=== PATIENT | female | born 1950 | race Caucasian/White ===

== ENCOUNTER 2021-11-30 07:15 | Day surgery (SDC) | payer MEDICARE, SELFPAY ==
[2021-11-24 14:54] VITALS: BMI 34.5
--- NOTE | 2021-11-26 13:12 | MHC.SHP ---
Pre-Procedural Eval Section A Date of Service: 11/26/21 The patient is an INPATIENT: No Changes since office visit: No Cold of Flu in the past 2 weeks, No New Medical Problems, No Changes in Medication and No Patient answered all questions The History & Physical has been completed within 30 days and I have reviewed it.: Yes Section B Chief Complaint: cataract Allergies: Allergies Allergy/AdvReac Type Severity Reaction Status Date / Time pineapple Allergy Mild Itching Verified 11/24/21 14:54 From PROZAC Allergy Intermediate RASH Uncoded 11/24/21 14:50 From ZOLOFT Allergy Intermediate HEADACHES Uncoded 11/24/21 14:50 Plan Diagnosis/Plan: Unchanged I have reviewed the history and physical and performed a pertinent physical examination on my patient. No changes have occurred unless specified.
--- NOTE | 2021-11-27 09:12 | HO.ANESPROP2 ---
Documented by User: Sandra Connolly NP 11/27/21 09:12 HPI - Anesthesia Eval Consult details Narrative: 71yo F for Right Cataract Extraction IOL Insertion PCP cleared No previous cataract on record PMFSH Past Medical History Medical History Anxiety disorder Cataract Elevated cholesterol Hypertension Mild heartburn Wears dentures Surgical History Surgical History Hx of colonoscopy Hx of eye surgery Social History Social History Are you a primary before and after school daycare worker to a significant other at home: No Do you presently have visiting nurse or other home services: No Patient Tobacco Use Status: Former Tobacco user Quit Date: 2006 Tobacco use type: Cigarette Use of substances other than those prescribed or required for medical reasons: No Have you been hit, kicked, punched, or otherwise hurt by someone within the past year? If so, by whom?: No Are you DNR?: No Advance Directives: No Advance Directives Information Provided: Yes Advance Directives on File: No Recently lost weight without trying: No Meds Allergies Allergy/AdvReac Type Severity Reaction Status Date / Time pineapple Allergy Mild Itching Verified 11/24/21 14:54 From PROZAC Allergy Intermediate RASH Uncoded 11/24/21 14:50 From ZOLOFT Allergy Intermediate HEADACHES Uncoded 11/24/21 14:50 Home Medications Medication Instructions Recorded Confirmed Last Taken Type lovastatin 40 mg tablet 1 tab PO BEDTIME 09/16/21 09/16/21 Unknown History cholecalciferol (vitamin D3) 25 25 mcg PO DAILY 11/24/21 11/24/21 Unknown History mcg (1,000 unit) capsule (Vitamin D3) flaxseed oil 1,000 mg capsule 1,200 mg PO DAILY 11/24/21 11/24/21 Unknown History losartan 50 mg tablet 1 tab PO DAILY 11/24/21 11/24/21 Unknown History multivitamin 1 tab PO DAILY 11/24/21 11/24/21 Unknown History vitamin A-vitamin C-vit E-min 1 tab PO DAILY 11/24/21 11/24/21 Unknown History tablet Exam Exam Date and Time: November 27, 2021911 Height,Weight and Vital Signs: Height 5 ft 3 in Weight 88.451 kg Assessment and Plan Assessment Anesthesia Assessment: Chart Reviewed Documented by User: Kevin Marcano MD 11/30/21 09:13 PMF Past Medical History Medical History Anxiety disorder Cataract Elevated cholesterol Hypertension Mild heartburn Wears dentures Family History Family history of problems with anesthesia: No Surgical History Surgical History Hx of colonoscopy Hx of eye surgery History of Problems with Anesthesia: No Social History Social History Are you a primary before and after school daycare worker to a significant other at home: No Do you presently have visiting nurse or other home services: No Patient Tobacco Use Status: Former Tobacco user Quit Date: 2006 Tobacco use type: Cigarette Use of substances other than those prescribed or required for medical reasons: No Have you been hit, kicked, punched, or otherwise hurt by someone within the past year? If so, by whom?: No Are you DNR?: No Advance Directives: No Advance Directives Information Provided: Yes Advance Directives on File: No Recently lost weight without trying: No Meds Allergies Allergy/AdvReac Type Severity Reaction Status Date / Time pineapple Allergy Mild Itching Verified 11/24/21 14:54 From PROZAC Allergy Intermediate RASH Uncoded 11/24/21 14:50 From ZOLOFT Allergy Intermediate HEADACHES Uncoded 11/24/21 14:50 Home Medications Medication Instructions Recorded Confirmed Last Taken Type lovastatin 40 mg tablet 1 tab PO BEDTIME 09/16/21 09/16/21 Unknown History cholecalciferol (vitamin D3) 25 25 mcg PO DAILY 11/24/21 11/24/21 Unknown History mcg (1,000 unit) capsule (Vitamin D3) flaxseed oil 1,000 mg capsule 1,200 mg PO DAILY 11/24/21 11/24/21 Unknown History losartan 50 mg tablet 1 tab PO DAILY 11/24/21 11/24/21 Unknown History multivitamin 1 tab PO DAILY 11/24/21 11/24/21 Unknown History vitamin A-vitamin C-vit E-min 1 tab PO DAILY 11/24/21 11/24/21 Unknown History tablet Exam Airway Mallampati Class: II TM Dist: >3cm Neck ROM: Full Denture: Upper and Lower Loose/Missing/Broken Teeth: Yes Heart: [id number] Lungs: cta b/l Assessment and Plan Assessment Anesthesia Assessment: Anesthesia Plan Discussed Final Anesthetic Review Family History of Problems with Anesthesia: No History of Problems with Anesthesia: No NPO: Yes ASA Class: II Final Preanesthetic Review: No Changes in Pt Med Stat, Meds/Allgs Chart Reviewed, Consent Obtained/Reviewed and Anes Risks/Benef Reviewed Patient Risk: Intermediate Procedure Risk: Low Assessment/Block/Sedation in SS: Assess/Block/Sedation-SS Anesthetic Plan Anesthetic Plan: MAC: and Agree w/ Assess. and Plan Disposition: Standard PACU
[2021-11-30 07:55] VITALS: BP 160/131; PULSE 76; RESP 16; TEMP 36.3; O2SAT 96
[2021-11-30] MEDS: Tetracaine HCl/PF 0.5% Oph Sol 4 ML DROPS 1 DROP EYE-RIGHT (09:01)
[2021-11-30] MEDS: Cyclopentolate 1 % Ophth Sol 2 ML DRPBTL 1 DROP EYE-RIGHT ×3 (09:03→09:13)
[2021-11-30] MEDS: Tropicamide 1 % Ophth Sol 3 ML BTL 1 DROP EYE-RIGHT ×3 (09:04→09:17)
[2021-11-30] MEDS: Phenylephrine HCL 2.5% Oph SoL 2 ML BOTTLE 1 DROP EYE-RIGHT ×3 (09:06→09:20)
[2021-11-30] MEDS: Lactated Ringers 500 ML 50 ML IV (09:17)
--- NOTE | 2021-11-30 11:07 | HO.PNOPHT ---
Ophthalmology Procedure Procedure Date of Service: 11/30/21 Ophthalmology Viscoelastic: Nydia Draket Dual Pack Pro Ophthalmology Lenses: TECDORYS [id number] (25) Procedure Notes: PREOPERATIVE DIAGNOSIS: Decreased visual acuity right eye secondary to cataract POSTOPERATIVE DIAGNOSIS: Same PROCEDURE: Right cataract extraction with intraocular lens insertion SURGEON: Thomas Vargas M.D. ANESTHESIA: Topical/MAC ESTIMATED BLOOD LOSS: None COMPLICATIONS: None After obtaining informed consent, the patient was brought to the operating room suite and placed in the supine position. After adequate sedation per anesthesia, topical drops of Tetracaine were given to the right eye. The eye was then prepped and draped in the usual sterile fashion. The operating room microscope was then positioned over the operative eye and a lid speculum placed. A paracentesis was created. Viscoelastic was then instilled into the anterior chamber. A three plane incision was then created temporally, utilizing a 2.85 mm keratome. Capsulotomy forceps were then utilized to create a circular tear capsulotomy. Hydrodissection and hydrodelineation were carried out until adequate mobilization of the nucleus occurred. Phacoemulsification was then utilized to remove the dense central nucleus followed by removal of the cortical material utilizing the automated aspiration irrigation unit. Viscoelastic was instilled into the posterior capsular bag followed by placement of a posterior chamber intraocular lens without difficulty. The residual Viscoelastic was then removed utilizing the automated IA machine. The wound was checked and found to be watertight. The patient tolerated the procedure well and the lid speculum was removed. Intracameral injection of Vigamox 0.1 mL followed by a subtenon injection of Kenalog-40 0.2 mL were administered. The patient will be seen in the a.m.
[2021-11-30 11:35] VITALS: BP 127/62; PULSE 71; RESP 18; TEMP 36.9; O2SAT 99
== END 2021-11-30 11:57 | disposition home or self-care (01) ==
PROVIDERS: PCP Nurse Practitioner Family; Visit Provider Ophthalmology
PROC: (CPT 66985; principal; 2021-11-30 10:20)
DX: H25.11 Age-related nuclear cataract, right eye (principal); H52.4 Presbyopia; H40.213 Acute angle-closure glaucoma, bilateral; Z83.518 Family history of other specified eye disorder; I10 Essential (primary) hypertension; E78.2 Mixed hyperlipidemia; E78.00 Pure hypercholesterolemia, unspecified; R73.03 Prediabetes; Z79.899 Other long term (current) drug therapy; Z88.8 Allergy status to other drugs, medicaments and biological substances; Z87.891 Personal history of nicotine dependence
CPT/HCPCS: 66984; J2250; J3010; J3300; V2632

== ENCOUNTER 2021-12-14 08:20 | Day surgery (SDC) | payer MEDICARE, SELFPAY ==
[2021-11-24 15:00] VITALS: BMI 34.5
--- NOTE | 2021-12-10 10:39 | MHC.SHP ---
Pre-Procedural Eval Section A Date of Service: 12/10/21 The patient is an INPATIENT: No Changes since office visit: No Cold of Flu in the past 2 weeks, No New Medical Problems, No Changes in Medication and No Patient answered all questions The History & Physical has been completed within 30 days and I have reviewed it.: Yes Section B Chief Complaint: cataract Allergies: Allergies Allergy/AdvReac Type Severity Reaction Status Date / Time pineapple Allergy Mild Itching Verified 11/24/21 14:54 From PROZAC Allergy Intermediate RASH Uncoded 11/24/21 14:50 From ZOLOFT Allergy Intermediate HEADACHES Uncoded 11/24/21 14:50 Plan Diagnosis/Plan: Unchanged I have reviewed the history and physical and performed a pertinent physical examination on my patient. No changes have occurred unless specified.
--- NOTE | 2021-12-11 09:28 | HO.ANESPROP2 ---
Documented by User: Sandra Connolly NP 12/11/21 09:28 HPI - Anesthesia Eval Consult details Narrative: 71yo F for Left Cataract Extraction IOL Insertion PCP cleared No prev cataract on record PMFSH Past Medical History Medical History Anxiety disorder Cataract Elevated cholesterol Hypertension Mild heartburn Wears dentures Family History Family history of problems with anesthesia: No Surgical History Surgical History Hx of colonoscopy Hx of eye surgery History of Problems with Anesthesia: No Social History Social History Are you a primary healthcare risk control consultant to a significant other at home: No Do you presently have visiting nurse or other home services: No Patient Tobacco Use Status: Former Tobacco user Quit Date: 2006 Tobacco use type: Cigarette Use of substances other than those prescribed or required for medical reasons: No Have you been hit, kicked, punched, or otherwise hurt by someone within the past year? If so, by whom?: No Are you DNR?: No Advance Directives: No Advance Directives Information Provided: Yes Advance Directives on File: No Recently lost weight without trying: No Meds Allergies Allergy/AdvReac Type Severity Reaction Status Date / Time pineapple Allergy Mild Itching Verified 11/24/21 14:54 From PROZAC Allergy Intermediate RASH Uncoded 11/24/21 14:50 From ZOLOFT Allergy Intermediate HEADACHES Uncoded 11/24/21 14:50 Home Medications Medication Instructions Recorded Confirmed Last Taken Type lovastatin 40 mg tablet 1 tab PO BEDTIME 09/16/21 09/16/21 Unknown History cholecalciferol (vitamin D3) 25 25 mcg PO DAILY 11/24/21 11/24/21 Unknown History mcg (1,000 unit) capsule (Vitamin D3) flaxseed oil 1,000 mg capsule 1,200 mg PO DAILY 11/24/21 11/24/21 Unknown History losartan 50 mg tablet 1 tab PO DAILY 11/24/21 11/24/21 Unknown History multivitamin 1 tab PO DAILY 11/24/21 11/24/21 Unknown History vitamin A-vitamin C-vit E-min 1 tab PO DAILY 11/24/21 11/24/21 Unknown History tablet Exam Exam Date and Time: December 11, 2021 0928 Height,Weight and Vital Signs: Height 5 ft 3 in Weight 88.451 kg Assessment and Plan Assessment Anesthesia Assessment: Chart Reviewed Final Anesthetic Review Family History of Problems with Anesthesia: No History of Problems with Anesthesia: No Documented by User: Britta John MD 12/14/21 10:28 HPI - Anesthesia Eval Consult details Narrative: 71yo F for Left Cataract Extraction IOL Insertion PCP cleared Right cataract 11/30/21. Midazolam 2mg Fentanyl 50mcg PMFSH Past Medical History Medical History Anxiety disorder Cataract Elevated cholesterol Hypertension Mild heartburn Wears dentures Surgical History Surgical History Hx of colonoscopy Hx of eye surgery Social History Social History Are you a primary healthcare risk control consultant to a significant other at home: No Do you presently have visiting nurse or other home services: No Patient Tobacco Use Status: Former Tobacco user Quit Date: 2006 Tobacco use type: Cigarette Use of substances other than those prescribed or required for medical reasons: No Have you been hit, kicked, punched, or otherwise hurt by someone within the past year? If so, by whom?: No Are you DNR?: No Advance Directives: No Advance Directives Information Provided: Yes Advance Directives on File: No Recently lost weight without trying: No Meds Allergies Allergy/AdvReac Type Severity Reaction Status Date / Time pineapple Allergy Mild Itching Verified 11/24/21 14:54 From PROZAC Allergy Intermediate RASH Uncoded 11/24/21 14:50 From ZOLOFT Allergy Intermediate HEADACHES Uncoded 11/24/21 14:50 Home Medications Medication Instructions Recorded Confirmed Last Taken Type lovastatin 40 mg tablet 1 tab PO BEDTIME 09/16/21 09/16/21 Unknown History cholecalciferol (vitamin D3) 25 25 mcg PO DAILY 11/24/21 11/24/21 Unknown History mcg (1,000 unit) capsule (Vitamin D3) flaxseed oil 1,000 mg capsule 1,200 mg PO DAILY 11/24/21 11/24/21 Unknown History losartan 50 mg tablet 1 tab PO DAILY 11/24/21 11/24/21 Unknown History multivitamin 1 tab PO DAILY 11/24/21 11/24/21 Unknown History vitamin A-vitamin C-vit E-min 1 tab PO DAILY 11/24/21 11/24/21 Unknown History tablet Exam Height,Weight and Vital Signs: Height 5 ft 3 in Weight 88.451 kg Vital Signs Temp Pulse Resp BP Pulse Ox O2 Del Method 12/14/21 09:04 98 F 78 18 132/89 97 Room Air Airway Mallampati Class: II TM Dist: >3cm Neck ROM: Full Denture: Upper and Lower Heart: RRR Lungs: CTAB Assessment and Plan Assessment Anesthesia Assessment: Anesthesia Plan Discussed Final Anesthetic Review NPO: Yes ASA Class: II Final Preanesthetic Review: No Changes in Pt Med Stat, Meds/Allgs Chart Reviewed, Consent Obtained/Reviewed and Anes Risks/Benef Reviewed Patient Risk: Low Procedure Risk: Low Assessment/Block/Sedation in SS: Assess/Block/Sedation-SS Anesthetic Plan Anesthetic Plan: MAC: Disposition: Standard PACU
[2021-12-14 09:04] VITALS: BP 132/89; PULSE 78; RESP 18; TEMP 36.6; O2SAT 97
[2021-12-14] MEDS: Cyclopentolate 1 % Ophth Sol 2 ML DRPBTL 1 DROP EYE-LEFT ×3 (09:32→09:35)
[2021-12-14] MEDS: Lactated Ringers 500 ML 50 ML IV (09:32)
[2021-12-14] MEDS: Tetracaine HCl/PF 0.5% Oph Sol 4 ML DROPS 1 DROP EYE-LEFT (09:32)
[2021-12-14] MEDS: Phenylephrine HCL 2.5% Oph SoL 2 ML BOTTLE 1 DROP EYE-LEFT ×3 (09:33→09:35)
[2021-12-14] MEDS: Tropicamide 1 % Ophth Sol 3 ML BTL 1 DROP EYE-LEFT ×3 (09:33→09:36)
--- NOTE | 2021-12-14 10:48 | HO.PNOPHT ---
Ophthalmology Procedure Procedure Date of Service: 12/14/21 Ophthalmology Viscoelastic: Healon Duet Dual Pack Pro Ophthalmology Lenses: TECDORYS [id number] (24) Procedure Notes: PREOPERATIVE DIAGNOSIS: Decreased visual acuity left eye secondary to cataract POSTOPERATIVE DIAGNOSIS: Same PROCEDURE: Left cataract extraction with intraocular lens insertion with synichialysis SURGEON: Thomas Vargas M.D. ANESTHESIA: Topical/MAC ESTIMATED BLOOD LOSS: None COMPLICATIONS: None After obtaining informed consent, the patient was brought to the operation room suite and placed in the supine position. After adequate sedation per anesthesia, topical drops of Tetracaine were given to the left eye. The eye was then prepped and draped in the usual sterile fashion. The operating room microscope was then positioned over the operative eye and a lid speculum placed. A paracentesis was created. Viscoelastic was then instilled into the anterior chamber. A three plane incision was then created temporally, utilizing a 2.85 mm keratome.The viscoelastic was utilized for synichialysis. Capsulotomy forceps were then utilized to create a circular tear capsulotomy. Hydrodissection and hydrodelineation were carried out until adequate mobilization of the nucleus occurred. Phacoemulsification was then utilized to remove the dense central nucleus followed by removal of the cortical material utilizing the automated aspiration irrigation unit. Viscoat elastic was instilled into the posterior capsular bag followed by placement of a posterior chamber intraocular lens without difficulty. The residual Viscoat elastic was then removed utilizing the automated IA machine. The wound was check and found to be watertight. The patient tolerated the procedure well and the lid speculum was removed. Intracameral injection of Vigamox 0.1 mL followed by a subtenon injection of Kenalog-40 0.2 mL were administered. The patient will be seen in the a.m.
[2021-12-14 11:14] VITALS: BP 166/59; PULSE 72; RESP 16; TEMP 36.4; O2SAT 99
== END 2021-12-14 11:24 | disposition home or self-care (01) ==
PROVIDERS: PCP Nurse Practitioner Family; Visit Provider Ophthalmology
PROC: (CPT 66985; principal; 2021-12-14 11:00)
DX: H25.12 Age-related nuclear cataract, left eye (principal); H21.512 Anterior synechiae (iris), left eye; H52.4 Presbyopia; H40.213 Acute angle-closure glaucoma, bilateral; I10 Essential (primary) hypertension; E78.2 Mixed hyperlipidemia; R73.03 Prediabetes; Z79.899 Other long term (current) drug therapy; Z88.8 Allergy status to other drugs, medicaments and biological substances; Z87.891 Personal history of nicotine dependence
CPT/HCPCS: 66984; J2250; J3010; J3300; V2632

== ENCOUNTER 2022-02-01 14:40 | Outpatient (REF) | payer MEDICARE, SELFPAY ==
[2022-02-01 14:53] VITALS: BP 168/74; PULSE 88; RESP 16; TEMP 36.8; O2SAT 98; BMI 34.9
== END 2022-02-01 14:41 | disposition home or self-care (01) ==
LOC: HO.MS 14:40
PROVIDERS: PCP Nurse Practitioner Family; Visit Provider Ophthalmology
PROC: (CPT 66821; principal; 2022-02-01 16:00)
DX: H26.491 Other secondary cataract, right eye (principal); Z96.1 Presence of intraocular lens; I10 Essential (primary) hypertension; E78.00 Pure hypercholesterolemia, unspecified; Z79.899 Other long term (current) drug therapy; Z88.8 Allergy status to other drugs, medicaments and biological substances; Z87.891 Personal history of nicotine dependence
CPT/HCPCS: 66821

== ENCOUNTER 2022-04-12 09:21 | Outpatient (REF) | payer MEDICARE, SELFPAY ==
--- NOTE | ~2022-04-12 | XR_ITS ---
EXAMINATION: XR SHOULDER, RIGHT CLINICAL INFORMATION: Pain COMPARISON: None TECHNIQUE: Three views of the right shoulder. FINDINGS: Bone alignment is normal. No fracture or dislocation. Normal glenohumeral joint. Degenerative changes at the acromioclavicular joint and greater tuberosity. Soft tissues are normal. XR/XR shoulder RT min 2V IMPRESSION: Degenerative changes at the acromioclavicular joint and greater tuberosity.
== END 2022-04-12 09:22 | disposition home or self-care (01) ==
LOC: HO.HOSX 09:21
PROVIDERS: Visit Provider Physician Assistant
DX: M75.101 Unspecified rotator cuff tear or rupture of right shoulder, not specified as traumatic (principal); M75.31 Calcific tendinitis of right shoulder
CPT/HCPCS: 20610; 73030; 99212; J1040

== ENCOUNTER 2022-07-01 09:00 | Outpatient (RCR) | payer MEDICARE, SELFPAY ==
--- NOTE | 2022-06-21 13:35 | MHC.PT.EP ---
[facility] [place] Office [place] Office [place] Office [address] [phone] F: [phone] F: [phone] F: [phone] F: [phone] Physical Therapy Plan of Care Date of Evaluation: Date of Surgery: none Diagnosis: Pain arc syndrome R shoulder. Assessment: Patient is a 72 year old R handed female who presents with s/s consistent with painful arc syndrome right shoulder. 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 Patient past medical history is fairly unremarkable but does include HTN and high cholesterol. Current impairments include pain, posture, ROM, strength, activity tolerance and functional mobility. Functional limitations include decreased ability to reach, lift, push, pull, carry and sleep. Patient is motivated with good rehab potential. Skilled PT will address impairments and functional limitations in order to achieve goals. Frequency and Duration: The patient will be seen 2x/week for 5 weeks Short Term Goals: I with HEP - 2 weeks AROM flexion and abd 120 - 3 weeks Able to sleep pain free on R - 3 weeks Custodial Goals: SPADI 30/130 or better - 5 weeks AROM WNL pain free - 5 weeks Strength 4/5 grossly - 5 weeks Restore all ADLs pain free - 5 weeks Treatment Plan: Modalities to reduce pain, spasms and effusion. Manual therapy to restore motion and function. Therapeutic exercise to improve strength and flexibility. Neuromuscular re-education for posture and balance. Therapeutic activities to return to functional activities of daily living. Electronically signed by: Chris Manrique PT Please sign and return to therapist. Thank you for your referral.
--- NOTE | 2022-08-04 09:38 | MHC.PT.DC ---
[facility] [place] Office [place] Office [place] Office [address] Malka Mckeon [address] [phone] F: [phone] F: [phone] F: [phone] F: [phone] Physical Therapy Discharge Report Diagnosis: Pain arc syndrome R shoulder. Date of Surgery: none Date of Evaluation: 06/21/22 Date of Discharge: 07/30/22 Treatments to Date: 2 Cancellations to Date: No Shows to Date: Discharge Status: Patient Elected to Stop Discharge Summary: 07/01/22: pt progressed with ROM and strength interventions. no adverse reactions from above. we did update HEP. She notes missing 2 weeks end of Jun and Early July with follow up after. Patient is a 72 year old R handed female who presents with s/s consistent with painful arc syndrome right shoulder. 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 Patient past medical history is fairly unremarkable but does include HTN and high cholesterol. Current impairments include pain, posture, ROM, strength, activity tolerance and functional mobility. Functional limitations include decreased ability to reach, lift, push, pull, carry and sleep. Patient is motivated with good rehab potential. Skilled PT will address impairments and functional limitations in order to achieve goals. Electronically signed by: Chris Manrique, PT Please sign and return to therapist. Thank you for your referral.
== END 2022-08-04 09:38 | disposition home or self-care (01) ==
LOC: HO.PTCHIC 09:00
PROVIDERS: PCP Internal Medicine; Visit Provider Physician Assistant
DX: M75.101 Unspecified rotator cuff tear or rupture of right shoulder, not specified as traumatic (principal)
CPT/HCPCS: 97110; 97162

== ENCOUNTER 2024-02-21 08:06 | Outpatient (AMB) | payer MEDICARE, SELFPAY ==
--- NOTE | 2024-02-21 08:17 | MHC.OFFVIS ---
Vital Signs 02/21/24 08:21 Height 5 ft 3 in Weight 180 lb BMI 31.9 Handedness Right Intake Visit Reasons: New Prob - left shoulder pain Intake Note: Haydee is a 74 year old right hand dominant female who presents today for a for a evaluation of her left shoulder pain, last injection was on her right shoulder on 04/12/22. Patient reports ongoing pain for since last February. She mentions that her ROM is limited. Patient tired taking meloxicam and Tylenol with mild relief. Allergies pineapple Allergy (Mild, Verified 02/21/24 08:20) Itching From PROZAC Allergy (Intermediate, Uncoded 11/24/21 14:50) RASH From ZOLOFT Allergy (Intermediate, Uncoded 11/24/21 14:50) HEADACHES HPI HPI New Prob - left shoulder pain: Details: 74-year-old right hand dominant female who presents in the office today for an evaluation of chronic left shoulder pain and limited ROM. I last saw the patient on 04/12/22 for the chief complaint of right shoulder pain. She was given a cortisone injection in the right shoulder and was referred to physical therapy. While in the office today, the patient reports ongoing left shoulder pain since 02/2023. She claims to have limited ROM in the left shoulder. She has tried meloxicam and Tylenol with mild pain relief. She has also tried arnica for pain relief. [facility] Medical History Anxiety disorder Cataract Elevated cholesterol Hypertension Mild heartburn Wears dentures Surgical History Hx of colonoscopy Hx of eye surgery Social History (Updated 02/21/24 @ 08:21 by Christy Guerrier) Are you a primary career development coordinator/teacher to a significant other at home: No Do you presently have visiting nurse or other home services: No Alcohol intake: never Patient Tobacco Use Status: Former Tobacco user Tobacco use type: Cigarette Review of Systems Const All systems reviewed & are unremarkable except as noted in HPI and below Physical Exam Vital Signs: BMI result Body Mass Index 31.9 Const General: cooperative, healthy appearing and no acute distress Resp Effort & Inspection: normal respiratory effort and able to speak in complete sentences Cardio Rate: regular rate Peripheral pulses: Peripheral pulses 2+ throughout GI Palpation (GI): Soft to palpation Skin Lesions: no lesions Rashes: no rashes Extrem Other: Left shoulder: Forward flexion lacking 45 degrees. Abduction to 80 degrees. Able to reach the back pocket. Pain with crossbody reach. 3/6 strength with an empty can. Negative drop arm. NVI. Office Procedures Joint Injection/Aspiration Joint Injection/Aspiration Primary Site: left shoulder Prep: site was prepped using aseptic technique, ethochloride spray was applied and injection warnings given Injected: 80 mg of, DepoMedrol, with 8 mL of (2% plain lido ) and in the subcromial space Approach Used: posterolateral Procedure: The patient tolerated the procedure well, but had some pain with the injection and there was some relief with the local anesthesia Coding 69362 - Large joint Procedure code (CPT) selection complete Assessment & Plan Assessment & Plan (1) Dysfunction of left rotator cuff: Code(s): M67.912 - Unspecified disorder of synovium and tendon, left shoulder Category: Medical (2) Osteoarthritis of left shoulder: Code(s): M19.012 - Primary osteoarthritis, left shoulder Category: Medical Plan Ms. Mathews is a 74-year-old right hand dominant female who presents in the office today for an evaluation of chronic left shoulder pain and limited ROM. I last saw the patient on 04/12/22 for the chief complaint of right shoulder pain. She was given a cortisone injection in the right shoulder and was referred to physical therapy. While in the office today, the patient reports ongoing left shoulder pain since 02/2023. She claims to have limited ROM in the left shoulder. She has tried meloxicam and Tylenol with mild pain relief. She has also tried arnica for pain relief. The patient was offered a cortisone injection in the left shoulder with 80 mg of Depo-Medrol. The patient was explained the risks, benefits, and alternatives to receiving this injection. After receiving consent for the injection, the patient had the procedure done while in the office today. The patient tolerated the procedure well with no complication. Follow up will be PRN, or sooner if needed. X-rays of the left shoulder which were obtained while in the office today and were reviewed by me, Nichol Figueroa PA-C, revealed no acute fracture dislocation. There are degenerative changes noted and slight rising of the humeral head. Orders: Orders XR shoulder LT min 2V Today M25.519 - Pain in unspecified shoulder Patient Instructions: Scribed by Angela Chinchilla, medical staff credentialing coordinator, for Nichol Figueroa PA-C on 02/21/24 at 8:25 am EST Coding Level of Care Code Est Pt Level 3 (18367) Diagnoses Dysfunction of left rotator cuff M67.912 Osteoarthritis of left shoulder M19.012 CPT Codes Coding - 46981 Large joint: 61678 - Large joint ([id number])
[2024-02-21 08:21] VITALS: BMI 31.9
== END 2024-02-21 08:48 | disposition home or self-care (01) ==
PROVIDERS: PCP Internal Medicine; Visit Provider Physician Assistant
DX: M67.912 Unspecified disorder of synovium and tendon, left shoulder (principal); M19.012 Primary osteoarthritis, left shoulder
CPT/HCPCS: 20610; 99213

== ENCOUNTER 2024-02-21 13:37 | Outpatient (REF) | payer MEDICARE, SELFPAY ==
--- NOTE | ~2024-02-21 | XR_ITS ---
EXAMINATION: XR SHOULDER, LEFT CLINICAL INFORMATION: Pain in shoulder COMPARISON: None available. TECHNIQUE: AP external rotation, Grashey, scapular Y, and axillary views of the left shoulder. FINDINGS: There is mild osteoarthritis of the acromioclavicular joint. Glenohumeral joint: Mild osteoarthritis. Surrounding bone and soft tissues unremarkable. XR/XR shoulder LT min 2V IMPRESSION: Mild osteoarthritis of the left shoulder. Electronically signed by: Lex Aponte MD 02/27/2024 10:23 AM EDT
== END 2024-02-21 13:38 | disposition home or self-care (01) ==
LOC: HO.HOSX 13:37
PROVIDERS: Visit Provider Physician Assistant
DX: M25.512 Pain in left shoulder (principal); M67.912 Unspecified disorder of synovium and tendon, left shoulder; M19.012 Primary osteoarthritis, left shoulder
CPT/HCPCS: 20610; 73030; 99212; J1010

== ENCOUNTER 2024-11-06 08:15 | Outpatient (AMB) | payer MEDICARE, SELFPAY ==
--- NOTE | 2024-11-06 08:29 | MHC.OFFVIS ---
Intake Visit Reasons: OV - left shoulder OA, last injection 02/21/24 Intake Note: Haydee is a 74 year old female who presents today for a follow up of her left shoulder OA, last injection 02/21/24. Patient reports - . Allergies pineapple Allergy (Mild, Verified 02/21/24 08:20) Itching From PROZAC Allergy (Intermediate, Uncoded 11/24/21 14:50) RASH From ZOLOFT Allergy (Intermediate, Uncoded 11/24/21 14:50) HEADACHES HPI HPI OV - left shoulder OA, last injection 02/21/24: Details: Ms. Gil is a 74-year-old female who presents to the office today for repeat left shoulder cortisone injection. Last injection was 02/21/2024 which gave her great relief. [facility] Medical History Anxiety disorder Cataract Elevated cholesterol Hypertension Mild heartburn Wears dentures Surgical History Hx of colonoscopy Hx of eye surgery Social History (Updated 02/21/24 @ 08:21 by Christy Guerrier) Are you a primary career development facilitator to a significant other at home: No Do you presently have visiting nurse or other home services: No Alcohol intake: never Patient Tobacco Use Status: Former Tobacco user Tobacco use type: Cigarette Review of Systems Const All systems reviewed & are unremarkable except as noted in HPI and below Physical Exam Const General: cooperative, healthy appearing and no acute distress Resp Effort & Inspection: normal respiratory effort and able to speak in complete sentences Extrem Other: Left shoulder: Forward flexion lacking 45 degrees. Abduction to 80 degrees. Able to reach the back pocket. Pain with crossbody reach. 3/6 strength with an empty can. Negative drop arm. NVI. Office Procedures AMB Joint Injection/Aspiration Joint Injection/Aspiration Primary Site: left shoulder Prep: site was prepped using aseptic technique, ethochloride spray was applied and injection warnings given Injected: 80 mg of, DepoMedrol, with 8 mL of (2% plain lidocaine) and in the subcromial space Approach Used: posterolateral Procedure: The patient tolerated the procedure well, but had some pain with the injection and there was some relief with the local anesthesia Coding 79684 - Large joint Procedure code (CPT) selection complete Assessment & Plan Assessment & Plan (1) Dysfunction of left rotator cuff: Code(s): M67.912 - Unspecified disorder of synovium and tendon, left shoulder Category: Medical (2) Osteoarthritis of left shoulder: Code(s): M19.012 - Primary osteoarthritis, left shoulder Category: Medical Plan The patient was offered a cortisone injection in the left shoulder with 80 mg of DepoMedrol. The patient was explained the risks, benefits, and alternatives to receiving this injection. After receiving consent for the injection, the patient had the procedure done while in the office today. The patient tolerated the procedure well with no complications. Follow-up will be PRN, or sooner if needed Coding Level of Care Code Est Pt Level 3 (70597) Diagnoses Dysfunction of left rotator cuff M67.912 Osteoarthritis of left shoulder M19.012 CPT Codes Coding - 83022 Large joint: 92065 - Large joint ([id number])
== END 2024-11-06 08:41 | disposition home or self-care (01) ==
LOC: HO.HOS 08:16
PROVIDERS: PCP Internal Medicine; Visit Provider Physician Assistant
DX: M67.912 Unspecified disorder of synovium and tendon, left shoulder (principal); M19.012 Primary osteoarthritis, left shoulder
CPT/HCPCS: 20610; 99213

== ENCOUNTER → 2024-11-06 08:15 | Outpatient (BNVA) | payer MEDICARE, SELFPAY | PROVIDERS: PCP Internal Medicine; Visit Provider Physician Assistant | DX: M67.912 Unspecified disorder of synovium and tendon, left shoulder (principal); M25.512 Pain in left shoulder; M19.012 Primary osteoarthritis, left shoulder | CPT/HCPCS: 20610; 99212; J1010; J2003 ==

== ENCOUNTER 2025-03-19 10:52 | Outpatient (AMB) | payer MEDICARE, SELFPAY ==
--- NOTE | 2025-03-19 11:06 | A.OFFVIS_ITS ---
Intake Visit Reasons: OV - left shoulder OA, last injection 11/06/24 Intake Note: Haydee is a 75 year old right hand dominant female who presents today for a follow up of her left shoulder OA, last injection 11/06/24. Patient reports she had relief with the injections, however her pain came back after 2 months of the injection. Patient notices that over head reaching is very uncomfortable. Allergies pineapple Allergy (Mild, Verified 03/19/25 11:08) Itching From PROZAC Allergy (Intermediate, Uncoded 11/24/21 14:50) RASH From ZOLOFT Allergy (Intermediate, Uncoded 11/24/21 14:50) HEADACHES HPI HPI OV - left shoulder OA, last injection 11/06/24: Details: Ms. Gil is a 75-year-old female who presents to the office today for routine follow up left shoulder osteoarthritis. Last cortisone injection was 11/06/2024 which gave her relief. She is looking to repeat injection while in office today. [facility] Medical History Anxiety disorder Cataract Elevated cholesterol Hypertension Mild heartburn Wears dentures Surgical History Hx of colonoscopy Hx of eye surgery Social History Are you a primary hearing care practitioner to a significant other at home: No Do you presently have visiting nurse or other home services: No Alcohol intake: never Patient Tobacco Use Status: Former Tobacco user Tobacco use type: Cigarette Review of Systems Const All systems reviewed & are unremarkable except as noted in HPI and below Physical Exam Const General: cooperative, healthy appearing and no acute distress Resp Effort & Inspection: normal respiratory effort and able to speak in complete sentences Extrem Other: Left shoulder: Forward flexion lacking 45 degrees. Abduction to 80 degrees. Able to reach the back pocket. Pain with crossbody reach. 3/6 strength with an empty can. Negative drop arm. NVI. Psych Appearance: grossly normal Mental Status: mental status grossly normal Attitude: cooperative Office Procedures AMB Joint Injection/Aspiration Joint Injection/Aspiration Primary Site: left shoulder Prep: site was prepped using aseptic technique, ethochloride spray was applied and injection warnings given Injected: 40 mg of, with 3 mL of, 1% plain lidocaine, 0.25% bupivacaine, in the subcromial space and decadron Approach Used: posterolateral Procedure: The patient tolerated the procedure well, but had some pain with the injection and there was some relief with the local anesthesia Coding 94644 - Large joint Procedure code (CPT) selection complete Assessment & Plan Assessment & Plan (1) Painful arc syndrome of right shoulder: Code(s): M75.101 - Unspecified rotator cuff tear or rupture of right shoulder, not specified as traumatic Category: Medical (2) Osteoarthritis of left shoulder: Code(s): M19.012 - Primary osteoarthritis, left shoulder Category: Medical Plan Ms. Gil is a 75-year-old female who presents to the office today for routine follow up left shoulder osteoarthritis. Last cortisone injection was 11/06/2024 which gave her relief. She is looking to repeat injection while in office today. The patient was offered a cortisone injection in the left shoulder. The patient was explained the risks, benefits, and alternatives to receiving this injection. After receiving consent for the injection, the patient had the procedure done while in the office today. The patient tolerated the procedure well with no complications. Follow-up will be PRN, or sooner if needed Coding Level of Care Code Est Pt Level 3 (39719) Diagnoses Painful arc syndrome of right shoulder M75.101 Osteoarthritis of left shoulder M19.012 CPT Codes Coding - 74395 Large joint: 04021 - Large joint ([id number])
== END 2025-03-19 11:38 | disposition home or self-care (01) ==
LOC: HO.HOS 10:53
PROVIDERS: PCP Internal Medicine; Visit Provider Physician Assistant
DX: M75.101 Unspecified rotator cuff tear or rupture of right shoulder, not specified as traumatic (principal); M19.012 Primary osteoarthritis, left shoulder
CPT/HCPCS: 20610; 99213

== ENCOUNTER → 2025-03-19 10:52 | Outpatient (BNVA) | payer MEDICARE, SELFPAY | PROVIDERS: PCP Internal Medicine; Visit Provider Physician Assistant | DX: M19.012 Primary osteoarthritis, left shoulder (principal); M75.101 Unspecified rotator cuff tear or rupture of right shoulder, not specified as traumatic | CPT/HCPCS: 20610; 99212; J0665; J1100; J2003 ==